=== PATIENT | female | born 1955 | race Caucasian/White ===

== ENCOUNTER → 2016-10-27 | Outpatient (CLI) | payer BC | LOC: MAMO 13:43 | DX: Z12.31 Encounter for screening mammogram for malignant neoplasm of breast (principal); Z79.890 Hormone replacement therapy; Z90.710 Acquired absence of both cervix and uterus | CPT/HCPCS: G0202 ==

== ENCOUNTER → 2016-10-31 | Outpatient (CLI) | payer BC | LOC: CT 09:45 | DX: F17.210 Nicotine dependence, cigarettes, uncomplicated (principal); K76.9 Liver disease, unspecified | CPT/HCPCS: G0297 ==

== ENCOUNTER → 2016-11-25 | Outpatient (CLI) | payer BC | LOC: US 08:58 | DX: K76.9 Liver disease, unspecified (principal); K76.89 Other specified diseases of liver | CPT/HCPCS: 36415; 76705; 82565; 84520; J7050; Q9962 ==

== ENCOUNTER → 2020-09-19 | Outpatient (CLI) | payer MEDICARE | LOC: KOH-I 12:07 | DX: M25.571 Pain in right ankle and joints of right foot (principal) | CPT/HCPCS: 73610 ==

== ENCOUNTER → 2020-11-15 | Outpatient (CLI) | payer MEDICARE | LOC: MAMO 11:06 | DX: Z12.31 Encounter for screening mammogram for malignant neoplasm of breast (principal) | CPT/HCPCS: 77063; 77067 ==

== ENCOUNTER → 2021-01-17 | Outpatient (CLI) | payer MEDICARE | LOC: OPSV 09:40 | DX: M81.0 Age-related osteoporosis without current pathological fracture (principal) | CPT/HCPCS: 96365; J3489 ==

== ENCOUNTER → 2021-03-01 | Outpatient (CLI) | payer MEDICARE | LOC: MRI 08:25 | DX: R29.898 Other symptoms and signs involving the musculoskeletal system (principal); Z98.1 Arthrodesis status; M51.16 Intervertebral disc disorders with radiculopathy, lumbar region; M48.061 Spinal stenosis, lumbar region without neurogenic claudication | CPT/HCPCS: 36415; 72158; 82565; A9577 ==

== ENCOUNTER → 2021-10-28 | Outpatient (CLI) | payer MEDICARE, OTHER | LOC: RAD 10:05 | DX: R22.42 Localized swelling, mass and lump, left lower limb (principal) | CPT/HCPCS: 73590 ==

== ENCOUNTER → 2021-11-19 | Outpatient (CLI) | payer MEDICARE, OTHER | LOC: MRI 08:40 | DX: R22.42 Localized swelling, mass and lump, left lower limb (principal) | CPT/HCPCS: 36415; 73720; 82565; 84520; A9577 ==

== ENCOUNTER → 2021-12-11 | Outpatient (CLI) | payer MEDICARE, OTHER | LOC: MAMO 11-18 11:30 | DX: Z12.31 Encounter for screening mammogram for malignant neoplasm of breast (principal) | CPT/HCPCS: 77063; 77067 ==